=== PATIENT | female | born 1980 | race Caucasian/White ===

== ENCOUNTER 2024-09-22 12:48 | Emergency (ER) | payer OTHER ==
[2024-09-22 14:27] LABS: SARS-CoV-2 Antigen CONTROL BLUE LINE VIS/BG OK; SARS-CoV-2 Antigen Rapid Res Negative (Negative)
--- NOTE | 2024-09-22 14:51 | RAD REPORT ---
EXAM: Chest Single View HISTORY: COUGH COMPARISON: None. FINDINGS: LUNGS/PLEURA: The lungs are clear. No pleural effusions or pneumothorax. No pulmonary edema. MEDIASTINUM: The mediastinal silhouette is within normal limits. CARDIAC: The cardiac silhouette is within normal limits. UPPER ABDOMEN: No significant abnormality. BONES: No acute abnormality. LINES/TUBES/OTHER: N/A IMPRESSION: No evidence of acute cardiopulmonary disease.
--- NOTE | 2024-09-22 17:56 | EDPHYS ---
Physician Documentation [facility] Name: Clarita Schneider Age: 44 yrs Sex: Female : 1980 Arrival Date: 09/22/2024 Time: 12:48 Bed DX3 Private MD: ED Physician Kia Dos Santos HPI: 09/22 17:58 This 44 yrs old Female presents to ER via Ambulatory with complaints of gb1 Weakness. 17:58 42-year-old female with feels weak and otherwise is having some cough and fever chills. gb1 She denies any chest pain, vomiting she has had some mild diarrhea as well. She. [employer] UNLOAD: 13:41 LMP 09/07/2024, Not jl7 Historical: - Allergies: 13:41 Levaquin; jl7 13:41 Iodine; jl7 - PMHx: 13:41 Asthma; tachycardia; jl7 - Immunization history:: Adult Immunizations unknown. - Infectious Disease History:: Denies. - Social history:: Smoking status: Patient reports the use of cigarette tobacco products. Exam: 17:58 Constitutional: This is a well developed, well nourished patient who is awake, alert, gb1 and in no acute distress. Head/Face: Normocephalic, atraumatic. Eyes: Pupils equal round and reactive to light, extra-ocular motions intact. Lids and lashes normal. Conjunctiva and sclera are non-icteric and not injected. Cornea within normal limits. Periorbital areas with no swelling, redness, or edema. ENT: Nares patent. No nasal discharge, no septal abnormalities noted. Tympanic membranes are normal and external auditory canals are clear. Oropharynx with no redness, swelling, or masses, exudates, or evidence of obstruction, uvula midline. Mucous membranes moist. Neck: Trachea midline, no thyromegaly or masses palpated, and no cervical lymphadenopathy. Supple, full range of motion without nuchal rigidity, or vertebral point tenderness. No Meningismus. Chest/axilla: Normal chest wall appearance and motion. Nontender with no deformity. No lesions are appreciated. Cardiovascular: Regular rate and rhythm with a normal S1 and S2. No gallops, murmurs, or rubs. Normal PMI, no JVD. No pulse deficits. Respiratory: Lungs have equal breath sounds bilaterally, clear to auscultation and percussion. No rales, rhonchi or wheezes noted. No increased work of breathing, no retractions or nasal flaring. Abdomen/GI: Soft, non-tender, with normal bowel sounds. No distension or tympany. No guarding or rebound. No evidence of tenderness throughout. Back: No spinal tenderness. No costovertebral tenderness. Full range of motion. Skin: Warm, dry with normal turgor. Normal color with no rashes, no lesions, and no evidence of cellulitis. MS/ Extremity: Pulses equal, no cyanosis. Neurovascular intact. Full, normal range of motion. Vital Signs: 13:40 BP 122 / 87; Pulse 120; Resp 17; Temp 100.2; Pulse Ox 97% ; Weight 90.72 kg; Height 5 jl7 ft. 0 in. ; Pain 5/10; 18:04 Pulse 103; ss 13:40 Body Mass Index 39.06 (90.72 kg, 152.4 cm) jl7 13:40 Pain Scale: Adult jl7 MDM: 13:44 Medical Screening Exam initiated gb1 17:58 Data reviewed: vital signs. gb1 09/22 13:43 Order name: Flu; Complete Time: 14:31 jl7 09/22 13:43 Order name: SARS RAPID; Complete Time: 14:31 jl7 09/22 13:46 Order name: Chest Single View XRAY; Complete Time: 15:18 jl7 Administered Medications: No medications were administered Disposition Summary: 09/22/24 17:56 Discharge Ordered Notes: Location: Home gb1 Problem: new gb1 Symptoms: are unchanged gb1 Condition: Stable gb1 Diagnosis - Viral infection, unspecified gb1 Followup: gb1 - With: Private Physician - When: - Reason: Recheck today's complaints Discharge Instructions: - Discharge Summary Sheet gb1 - Viral Illness, Adult gb1 Forms: - Work release form gb1 - Medication Reconciliation Form gb1 - Antibiotic Education gb1 - Prescription Opioid Use gb1 - Patient Portal Instructions gb1 - Leadership Thank You Letter gb1 Signatures: Dispatcher [employer] Maicol Diaz RN RN jl7 Kia Dos Santos MD MD gb1 Corrections: (The following items were deleted from the chart) 13:42 13:41 Allergies: No Known Allergies; jl7 jl7
--- NOTE | 2024-09-22 17:56 | ER ---
Nurse's Notes [facility] Name: Clarita Schneider Age: 44 yrs Sex: Female : 1980 Arrival Date: 09/22/2024 Time: 12:48 Bed DX3 Private MD: Diagnosis: Viral infection, unspecified Presentation: 09/22 13:40 Chief complaint: Patient states: cough, fever x 1 week. Coronavirus screen: Client richard presents with at least one sign or symptom that may indicate coronavirus-19. Ebola Screen: No symptoms or risks identified at this time. Initial Sepsis Screen: Does the patient meet any 2 criteria? HR > 90 bpm. No. Patient's initial sepsis screen is negative. Does the patient have a suspected source of infection? No. Patient's initial sepsis screen is negative. Risk Assessment: Do you want to hurt yourself or someone else? Patient reports no desire to harm self or others. Onset of symptoms is unknown. 13:40 Method Of Arrival: Ambulatory [facility] 13:40 Acuity: CRISTINO 3 jl7 Triage Assessment: 13:41 General: Appears in no apparent distress. uncomfortable, ill, Behavior is calm, jl7 cooperative. Pain: Complains of pain in chest soreness from coughing Pain currently is 5 out of 10 on a pain scale. [employer] INSIGHTS: 13:41 LMP 09/07/2024, Not jl7 Historical: - Allergies: 13:41 Levaquin; jl7 13:41 Iodine; jl7 - PMHx: 13:41 Asthma; tachycardia; jl7 - Immunization history:: Adult Immunizations unknown. - Infectious Disease History:: Denies. - Social history:: Smoking status: Patient reports the use of cigarette tobacco products. Assessment: 18:03 General: Appears in no apparent distress. comfortable, Behavior is calm, cooperative. ss General: Reports fatigue for. Neuro: Level of Consciousness is awake, alert, obeys commands, Oriented to person, place, time. Respiratory: Airway is patent Respiratory effort is even, unlabored, Respiratory pattern is regular, symmetrical. GI: Patient currently denies diarrhea, nausea, vomiting. Derm: Skin is intact, is healthy with good turgor, Skin is dry, Skin is pink, warm \T\ dry. normal. Vital Signs: 13:40 BP 122 / 87; Pulse 120; Resp 17; Temp 100.2; Pulse Ox 97% ; Weight 90.72 kg; Height 5 jl7 ft. 0 in. ; Pain 5/10; 18:04 Pulse 103; ss 13:40 Body Mass Index 39.06 (90.72 kg, 152.4 cm) jl7 13:40 Pain Scale: Adult [facility] ED Course: 12:50 Patient arrived in ED. ra3 12:52 Kia Dos Santos MD is Attending Physician. gb1 13:41 Triage completed. jl7 13:41 Arm band placed on right wrist. jl7 13:46 Patient placed in waiting room, Patient notified of wait time. jl7 14:44 Chest Single View XRAY In Process Unspecified. EDMS 18:03 Adriana Ferrell, RN is Primary Nurse. ss 18:04 No provider procedures requiring assistance completed. Patient did not have IV access ss during this emergency room visit. Administered Medications: No medications were administered Outcome: 17:56 Discharge ordered by MD. gb1 18:04 Discharged to home ambulatory, ss 18:04 Condition: good 18:04 Discharge instructions given to patient, Instructed on discharge instructions, follow up and referral plans. Demonstrated understanding of instructions, follow-up care, 18:04 Patient left the ED. ss Signatures: Dispatcher [employer] EDMS Adriana Ferrell, CLAUDETTE RN Maicol Pierce RN RN jl7 Blocker, Gina, MD MD gbCharo Sultana ra3 Corrections: (The following items were deleted from the chart) 13:42 13:41 Allergies: No Known Allergies; [place] [id number]
[2024-09-22 23:02] VITALS: BP 122/87; TEMP 100.2; O2SAT 97
== END 2024-09-22 18:04 | disposition home or self-care (01) ==
LOC: ER 12:48
DX: B34.9 Viral infection, unspecified (principal); R53.1 Weakness; F17.210 Nicotine dependence, cigarettes, uncomplicated; Z88.5 Allergy status to narcotic agent; Z11.52 Encounter for screening for COVID-19
CPT/HCPCS: 36415; 71045; 87804; 87811; 99282